=== PATIENT | male | born 1960 | race Caucasian/White ===

== ENCOUNTER 2016-12-01 05:48 | Emergency (ER) | payer MEDICAID ==
[~2016-12-01] VITALS: Ht 175.3 cm; Wt 81.6 kg
[2016-12-01 06:01] VITALS: BP 126/81
[2016-12-01] MEDS ORDERED: KETOROLAC TROMETHAMINE INJ 30 MG/ML VIAL ONE (06:17)
[2016-12-01] MEDS ORDERED: KETOROLAC TROMETHAMINE INJ 60 MG/2 ML VIAL IM ONE (06:30)
== END 2016-12-01 06:31 | disposition home or self-care (01) ==
LOC: ER 05:48
DX: G89.21 Chronic pain due to trauma (principal); M21.612 Bunion of left foot
CPT/HCPCS: A4606; J1885; Z7502; Z7610

== ENCOUNTER 2016-12-20 20:03 | Emergency (ER) | payer MEDICAID ==
[~2016-12-20] VITALS: Ht 172.7 cm; Wt 74.8 kg
[2016-12-20 20:26] VITALS: BP 138/92
== END 2016-12-21 02:25 | disposition home or self-care (01) ==
LOC: ER 20:03
DX: Z53.21 Procedure and treatment not carried out due to patient leaving prior to being seen by health care provider (principal)
CPT/HCPCS: A4606; Z7610

== ENCOUNTER 2019-10-21 03:10 | Inpatient (IN) | payer MEDICAID ==
[~2019-10-21] VITALS: Ht 170.2 cm; Wt 80.3 kg
[2019-10-21] MEDS ORDERED: MAG HYDROX/AL HYDROX/SIMETH 30 ML UDC PO PRN (04:30)
[2019-10-21] MEDS ORDERED: ZOLPIDEM TARTRATE 5 MG TABLET PO PRN (04:30)
[2019-10-21] MEDS ORDERED: HYDROCODONE/APAP 5/325MG 1 EACH TABLET PO PRN (04:30)
[2019-10-21] MEDS ORDERED: Z GUARD REMEDY 2 OZ OINT TP PRN (04:30)
[2019-10-21] MEDS ORDERED: ONDANSETRON HCL/PF 4 MG/2 ML VIAL IVP PRN (04:30)
[2019-10-21] MEDS ORDERED: MAGNESIUM HYDROXIDE 30 ML UDC PO PRN (04:30)
[2019-10-21] MEDS: CEFTRIAXONE 1 G in IV D5W 50 ML IV SCH (05:23)
--- NOTE | 2019-10-21 05:23 | NUR ---
MS RN NOTE PT ARRIVED VIA GURNEY ACCOMPANIED BY AMBULANCE STAFF. PT TRANSFERRED WITH STANDBY ASSIST FROM GURNEY TO BED. PT ARRIVED TO FLOOR IN STABLE CONDITION A/O X4, VERBALIZING HIS NEED TO REST. NO SIGNS OF SOB OR DISTRESS, NO COMPLAINTS OF PAIN OR N/V. IV IN R AC #20 NOTED. PT REFUSING SKIN ASSESSMENT, ADMISSION VITALS, AND ADMISSION QUESTIONS. BELONGINGS NOTED WERE BOOTS, JACKET, SHIRT AND PANTS. PT CONTINUES TO DECLINE ALL NECESSARY CARE. ALL CURRENT NEEDS ATTENDED TO. SAFETY PRECAUTIONS IN PLACE. WILL CONT. TO MONITOR.
[2019-10-21] MEDS ORDERED: VITAMIN B1 PO (05:52)
[2019-10-21] MEDS ORDERED: IBUP-1955 PO ×2 (05:52)
[2019-10-21] MEDS ORDERED: PERM60CR4 TP (05:52)
[2019-10-21] MEDS ORDERED: CEPH500C2 PO (05:52)
[2019-10-21] MEDS ORDERED: FOLI5VIA2 IJ (05:52)
--- NOTE | 2019-10-21 06:17 | NUR ---
MS RN NOTE PT REMAINS IN STABLE CONDITION A/O X4, RESTING IN BED. NO SIGNS OF SOB OR DISTRESS, NO COMPLAINTS OF PAIN OR N/V. IV IN R AC #20 NOTED.PT CONTINUES TO DECLINE ALL NECESSARY CARE RISKS AND BENEFITS MADE AWARE. ALL CURRENT NEEDS ATTENDED TO. SAFETY PRECAUTIONS IN PLACE. WILL CONT AND ENDORSE TO NEXT SHIFT FOR MILLA.
--- NOTE | 2019-10-21 07:45 | NUR ---
MS RN OPENING NOTE PATIENT IN BED RESTING COMFORTABLY. PATIENT IN NO ACUTE DISTRESS. NO SOB NOTED. PATIENT BREATHING IS EVEN AND UNLABORED. IV ACCESS PATENT AND INTACT. EXTREMITIES OFFLOADED ON PILLOWS. SAFETY PRECAUTIONS IN PLACE. PATIENT BED IS LOCKED AND IN LOWEST POSITION. CALL LIGHT WITHIN REACH. WILL CONTINUE TO MONITOR.
--- NOTE | 2019-10-21 08:15 | NUR ---
MS/RN Opening note Received patient resting in bed, A/O x4, showing no signs of acute distress or SOB. Patient states he in "pain all over his body" I offered the patient pain medication but he refused, he said "I dont take drugs, I only drink." Patient agreed to show me his left toe and immediately started screaming, "Put my sock back on! My feet are cold! I dont like having any part of my body exposed!" Left big toe and second toe are both swollen, yellow and moist with odor. Patient refused photos and culture swab. Offered Urinal and bedside commode to patient, and patient refused both. He got up and walked to the bathroom and asked to be left alone. Patient is on contact isolation to rule out head lice due to history of head lice and previously prescribed med of permethrin (acticin/elimite) from [facility]. Safety measures in place, patient is aware of how to call for assistance. Will continue to monitor.
[2019-10-21 12:03] LABS: BASOPHILS % (AUTO) 0.5 % (0.0-2.0); EOSINOPHILS % (AUTO) 5.3 % (0.0-6.0); HEMATOCRIT 35 % (39-51); HEMOGLOBIN 11.4 g/dL (13.5-17.5); LYMPHOCYTES # (AUTO) 0.7 /CMM (0.8-4.8); LYMPHOCYTES % (AUTO) 11.5 % (20.0-44.0); MEAN CORPUSCULAR HGB CONC 33 g/dl (31.0-36.0); MEAN CORPUSCULAR VOLUME 99 fL (80-96); MONOCYTES # (AUTO) 0.7 /CMM (0.1-1.30); MONOCYTES % (AUTO) 10.5 % (2.0-12.0); NEUTROPHILS # (AUTO) 4.6 /CMM (1.8-8.9); NEUTROPHILS % (AUTO) 72.2 % (43.0-81.0); PLATELET COUNT (AUTO) 178 /CMM (150-450); RED BLOOD CELL COUNT(AUTO) 3.53 MIL/uL (4.5-6.0); WHITE BLOOD COUNT (AUTO) 6.3 K/uL (4.3-11.0)
[2019-10-21 12:12] LABS: CREATININE 0.9 mg/dL (0.6-1.3); POTASSIUM 3.9 mmol/L (3.5-5.1)
[2019-10-21 12:18] LABS: ALBUMIN 3.4 g/dL (3.4-5.0); BILIRUBIN,TOTAL 0.5 mg/dL (0.2-1.0); TOTAL PROTEIN, SERUM 7.1 g/dL (6.4-8.2)
[2019-10-21 12:25] LABS: THYROID STIMULATING HORMONE 2.399 uIU/mL (0.358-3.74)
--- NOTE | 2019-10-21 13:31 | NUR ---
MS/RN note Patient agreed to MRSA swab of the nares and agreed to take photos of his face and bilateral feet. Patient refused assessment of his sacrum but he stated he has a history of hemorrhoids.
--- NOTE | 2019-10-21 13:32 | NUR ---
MS/RN note contacted central supply for isolation cart, they said that they ran out but will bring one up as soon as they can obtain one. Gown, masks and head covers placed outside of room
[2019-10-21 16:00] VITALS: BP 127/71
--- NOTE | 2019-10-21 19:45 | NUR ---
MS RN CLOSING NOTE PATIENT IN BED RESTING COMFORTABLY. PATIENT IN NO ACUTE DISTRESS. NO SOB NOTED. PATIENT BREATHING IS EVEN AND UNLABORED. PATIENT KEPT CLEAN, DRY, AND COMFORTABLE THROUGHOUT SHIFT. IV ACCESS PATENT AND INTACT. EXTREMITIES OFFLOADED ON PILLOWS. SAFETY PRECAUTIONS IN PLACE. PATIENT BED IS LOCKED AND IN LOWEST POSITION. CALL LIGHT WITHIN REACH. WILL ENDORSE CARE TO PM SHIFT FOR MILLA.
--- NOTE | 2019-10-21 19:46 | NUR ---
MS RN OPENING NOTE RECEIVED PATIENT IN BED. CURRENTLY ON CONTACT ISOLATION TO R/O LICE AND SCABIES. A/OX4. TOLERATING ROOM AIR. RESPIRATION ARE EVEN AND UNLABORED. NO S/S SOB NOTED. DENIES PAIN AT THIS TIME. IN NO APPARENT DISTRESS. IV ACCESS IN RAC#20 RUNNING NS@75ML/HR. BED IS LOW AND LOCKED, HOB ELEVATED IN SEMIFOWLERS, SIDE RIALS UP X3, BED ALARM ON. CALL LIGHT WITHIN REACH. WILL CONTINUE TO MONITOR.
[2019-10-21 20:00] VITALS: BP 114/71
[2019-10-22] MEDS ORDERED: VANCOMYCIN 1.25 GM in IV D5W 250 ML IV ONE (02:00)
[2019-10-22] MEDS ORDERED: VANCOMYCIN 1 GM VIAL ONE ×2 (02:56→02:57)
--- NOTE | 2019-10-22 03:00 | NUR ---
MS RN NOTE ADMINISTERED VANCO 1.25G. CHARGE NURSE OVER RIDE VANCO IN [facility] CELL BECAUSE I WAS NOT ABLE TO GET THE ANTIBIOTIC AT THIS TIME. TWO 1G VANCO BAGS WERE OVER RIDE, USED A 10 CC SYRINGE TO MIX IN ONE OF THE 1G VIALS AND REMOVED THE AMOUNT OF .25G AND MIXED WITH THE OTHER 1G VANCO BAG.
[2019-10-22] MEDS: CEFTRIAXONE 1 G in IV D5W 50 ML IV SCH (05:57)
[2019-10-22] MEDS: IV NS 0.9% 1,000 ML IV PRN (05:57)
[2019-10-22] MEDS ORDERED: FEE PK DOSING 1 MIN EA MC ONE (06:15)
--- NOTE | 2019-10-22 07:22 | NUR ---
MS RN CLOSING NOTE PATIENT IN BED. ON CONTACT ISOLATION TO R/O LICE AND SCABIES. A/OX4. TOLERATING ROOM AIR. RESPIRATION ARE EVEN AND UNLABORED. NO SOB NOTED. NO C/O PAIN. NO DISTRESS NOTED. IV ACCESS MAINTAINED IN RAC#20 RUNNING NS@75ML/HR. BED IS LOW AND LOCKED, HOB ELEVATED IN SEMIFOWLERS, SIDE RIALS UP X3, BED ALARM ON. CALL LIGHT WITHIN REACH. WILL ENDORSE TO NEXT SHIFT
--- NOTE | 2019-10-22 07:43 | NUR ---
MS/RN Opening note Patient is resting in bed, A/O x4 showing no signs of acute distress or SOB, saturating >95% on RA. IV line is clean and intact running NS @ 75ml/hr. Patient is complaining of headache at this time but refuses to take any pain medication. Light turned off in room and door closed to help patient relax. Bed is in lowest position, side rails x2 in upright position, call light is within reach and patient is aware of how to call for assistance when needed. Will continue with plan of care.
[2019-10-22 08:26] VITALS: BP 123/84
[2019-10-22] MEDS ORDERED: PERMETHRIN 59 ML BOTTLE TP ONE (09:00)
[2019-10-22 10:21] LABS: BASOPHILS % (AUTO) 0.6 % (0.0-2.0); EOSINOPHILS % (AUTO) 7.1 % (0.0-6.0); HEMATOCRIT 36 % (39-51); HEMOGLOBIN 12.2 g/dL (13.5-17.5); LYMPHOCYTES # (AUTO) 0.8 /CMM (0.8-4.8); LYMPHOCYTES % (AUTO) 14.3 % (20.0-44.0); MEAN CORPUSCULAR HGB CONC 34 g/dl (31.0-36.0); MEAN CORPUSCULAR VOLUME 97 fL (80-96); MONOCYTES # (AUTO) 0.8 /CMM (0.1-1.30); MONOCYTES % (AUTO) 15.1 % (2.0-12.0); NEUTROPHILS # (AUTO) 3.4 /CMM (1.8-8.9); NEUTROPHILS % (AUTO) 62.9 % (43.0-81.0); PLATELET COUNT (AUTO) 181 /CMM (150-450); RED BLOOD CELL COUNT(AUTO) 3.75 MIL/uL (4.5-6.0); WHITE BLOOD COUNT (AUTO) 5.4 K/uL (4.3-11.0)
[2019-10-22 10:34] LABS: CALCIUM, SERUM 8.7 mg/dL (8.5-10.1); CREATININE 0.9 mg/dL (0.6-1.3); MAGNESIUM 2.1 mg/dL (1.8-2.4); PHOSPHORUS 2.6 mg/dL (2.5-4.9); POTASSIUM 3.8 mmol/L (3.5-5.1)
--- NOTE | 2019-10-22 12:11 | NUR ---
MS/RN note sent a request for health information from [facility] for lab results. The Release of Information office is closed for the weekend. Will follow up.
[2019-10-22] MEDS: VANCOMYCIN 1.25 GM in IV D5W 250 ML IV SCH (15:58)
[2019-10-22 16:33] VITALS: BP 110/71
[2019-10-22] MEDS ORDERED: DOCUSATE SODIUM LIQ 100 MG/10 ML UDC ONE (16:37)
--- NOTE | 2019-10-22 18:38 | NUR ---
MS/RN Closing note Patient is resting in bed, A/O x4 showing no signs of acute distress or SOB, saturating >95% on RA. IV line is clean and intact running NS @ 75ml/hr. Patient is on contact isolation precautions. All patient needs met, all due meds given. Bed is in lowest position, side rails x2 in upright position, call light is within reach and patient is aware of how to call for assistance when needed. Will endorse to shift commander.
[2019-10-22 20:00] VITALS: BP 104/69
--- NOTE | 2019-10-22 20:01 | NUR ---
MS RN OPENING NOTE RECEIVED PATIENT IN BED. ON CONTACT ISOLATION TO R/O LICE AND SCABIES. A/OX4. TOLERATING ROOM AIR. RESPIRATION ARE EVEN AND UNLABORED. NO S/S SOB NOTED. DENIES PAIN AT THIS TIME. IN NO APPARENT DISTRESS. IV ACCESS IN RAC#20 RUNNING NS@75ML/HR. BED IS LOW AND LOCKED, HOB ELEVATED IN SEMIFOWLERS, SIDE RIALS UP X3, BED ALARM ON. CALL LIGHT WITHIN REACH. WILL CONTINUE TO MONITOR.
[2019-10-22 21:27] VITALS: BP 104/69
--- NOTE | 2019-10-23 00:17 | NUR ---
MS RN NOTE PATIENT REFUSED TO HAVE PHOTOS TAKEN OF HIS RIGHT FOOT AND LEFT TOE. ALLOWED PARTIAL PICTURE TAKING. PICTURES PLACES IN CHART
[2019-10-23] MEDS: VANCOMYCIN 1.25 GM in IV D5W 250 ML IV SCH ×2 (01:52→14:29)
[2019-10-23] MEDS: CEFTRIAXONE 1 G in IV D5W 50 ML IV SCH (05:13)
[2019-10-23] MEDS: IV NS 0.9% 1,000 ML IV PRN ×2 (05:13→23:50)
--- NOTE | 2019-10-23 05:29 | NUR ---
MS RN NOTE PATIENT ALLOWED PHOTOS TO BE TAKEN ON LEFT TOE AND RIGHT FOOT. PHOTOS PLACED IN CHART.
[2019-10-23 07:27] LABS: BASOPHILS % (AUTO) 0.8 % (0.0-2.0); EOSINOPHILS % (AUTO) 8.8 % (0.0-6.0); HEMATOCRIT 36 % (39-51); HEMOGLOBIN 12.2 g/dL (13.5-17.5); LYMPHOCYTES # (AUTO) 0.9 /CMM (0.8-4.8); LYMPHOCYTES % (AUTO) 16.9 % (20.0-44.0); MEAN CORPUSCULAR HGB CONC 34 g/dl (31.0-36.0); MEAN CORPUSCULAR VOLUME 98 fL (80-96); MONOCYTES # (AUTO) 0.8 /CMM (0.1-1.30); MONOCYTES % (AUTO) 15.8 % (2.0-12.0); NEUTROPHILS # (AUTO) 3.1 /CMM (1.8-8.9); NEUTROPHILS % (AUTO) 57.7 % (43.0-81.0); PLATELET COUNT (AUTO) 183 /CMM (150-450); WHITE BLOOD COUNT (AUTO) 5.3 K/uL (4.3-11.0)
[2019-10-23 07:39] LABS: ALBUMIN 3.2 g/dL (3.4-5.0); BILIRUBIN,DIRECT 0.1 mg/dL (0.0-0.2); BILIRUBIN,TOTAL 0.6 mg/dL (0.2-1.0)
[2019-10-23 07:41] LABS: CALCIUM, SERUM 8.4 mg/dL (8.5-10.1); MAGNESIUM 2.1 mg/dL (1.8-2.4); PHOSPHORUS 3.1 mg/dL (2.5-4.9); POTASSIUM 3.9 mmol/L (3.5-5.1)
--- NOTE | 2019-10-23 08:07 | NUR ---
MS RN OPENING NOTES RECEIVED PATIENT AWAKE, A/O X4. PATIENT ON ROOM AIR BREATHING EVEN AND UNLABORED WITH NO S/S OF ACUTE RESPIRATORY DISTRESS NOTED AT THIS TIME. PATIENT WITH MILD GENERALIZED PAIN AT THIS TIME. RAC GAUGE # 20 PRESENT AND INTACT, FLUSHING WELL WITH NS RUNNING AT 75 ML/HR. SAFETY PRECAUTIONS IN PLACE: BED IN LOW POSITION AND LOCKED, RAILS UP X 2, CALL LIGHT WITHIN REACH. WILL CONTINUE TO MONITOR PATIENT.
[2019-10-23] MEDS: ACETAMINOPHEN 325 MG TABLET PO PRN (09:46)
--- NOTE | 2019-10-23 11:03 | NUR ---
WOUND CARE CONSULT: PT PRESENTS AMBULATORY AND CONTINENT WITH DRY LESIONS TO BILATERAL FEET AND PAINFUL LEFT 2ND TOE, PRESENT ON ADMISSION. RECOMMEND DPM CONSULT. DR OLGUIN NOTIFIED OF CONSULT REQUEST. WILL SEE PRN. Addendum: 10/23/19 at 1105 by HUMAIRA LAKE WNDNU PT ALSO NOTED TO HAVE EYEBROW CLOSED LACERATION WITH SUTURES AND DRY ABRASION TO CHEEK, PRESENT ON ADMISSION.
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
[2019-10-23 16:00] VITALS: BP 119/86
--- NOTE | 2019-10-23 19:09 | NUR ---
MS RN CLOSING NOTES PATIENT AT THIS MOMENT IN BED, AWAKE, A/O X4 WATCHING TV. PATIENT ON ROOM AIR BREATHING EVENLY WITH NO S/S OF DISTRESS OR SOB AT THIS TIME. PATIENT DENIES PAIN AT THIS MOMENT. RAC GAUGE # 20 PRESENT, INTACT AND PATENT INFUSING NS AT 75 MLS /HR. MEPILEX APPLIED ON LEFT 2ND TOE PER ORDER. SAFETY PRECAUTIONS IN PLACE: BED IN LOW POSITION AND LOCKED, RAILS UP X 2, CALL LIGHT WITHIN REACH. WILL ENDORSE TO THE GRAIN SHIPPER NURSE.
[2019-10-23 20:00] VITALS: BP 111/71
--- NOTE | 2019-10-23 20:00 | NUR ---
MS/RN OPENING NOTES RECEIVED FROM ID TO F/U REGARDING BLOOD CULTURE HISTORY FROM [facility] IN AM, PATIENT IN CONTACT ISOLATION FOR LICE, PATIENT ALERT, ORIENTED X3, ABLE TO COOPERATE AND VERBALIZE NEEDS, CAN AMBULATE WITH SUPERVISION AT THE BATHROOM, IV SITE ON RIGHT AC GAUGE 20. WITH LEFT TOE CELLULITIS, WITH ORDER FOR IV NS AT 75ML/HR, PATIENT ABLE TO TOLERATE FLUIDS.WITH ANTIBIOTIC TO BE ADMINISTERED VANCO,BED LOCCKED, CALL LIGHTS WITHIN REACH. WILL MONITOR.
--- NOTE | 2019-10-24 00:06 | NUR ---
ms/rn notes PATIENT WAS INFORMED ABOUT IV FLUIDS AND MEDICATION TO ADMINISTER AT 2, WAS AWAKEN FROM SLEEP AND UPSET THAT HE WAS AWAKEN, VERBALIZED REFUSAL TO HAVE IV FLUIDS AND REINSETION OF IV , NOT COOPERATIVE AND NON COMPLIANT FOR MEDICAL TREATMENT AT THIS TIME. MD PEREZ WAS INFORMED.
[2019-10-24] MEDS: VANCOMYCIN 1 GM in IV D5W 250 ML IV SCH ×2 (02:00→14:12)
--- NOTE | 2019-10-24 02:00 | NUR ---
REFUSAL OF IV VANCO, VERBAL AGGRESSIVE AND MD AWARE
--- NOTE | 2019-10-24 02:30 | NUR ---
MS/RN NOTES PATIENT REFUSE TO HAVE IV INSERTION, REFUSE IV VANCO TO BE ADMINISTERED, BEHAVIOR AGGRESSIVE, VERBAL ABUSIVE, UNCONTROLLED. MD AWARE FOR NON COMPLIANCE.UNABLE TO FOLLOW INSTRUCTION.
[2019-10-24] MEDS: CEFTRIAXONE 1 G in IV D5W 50 ML IV SCH (05:11)
--- NOTE | 2019-10-24 05:12 | NUR ---
MS/RN NOTES PATIENT REFUSE CARE AND DO NOT WANT TO HAVE IV REINSERTED, PATIENT IV SITE REPORTED PAINFUL, PATIENT UPSET WHEN BEING AWAKEN AND DEMANDED NOT TO WAKE HIM UP, VERBALLY AGGRESSIVE.MD AWARE PATIENT IS NON COMPLIANT.
--- NOTE | 2019-10-24 06:31 | NUR ---
329-1 ,MS/RN NOTES' PATIENT SLEPT AND REFUSE VANCO ADMINISTRATION, BEHAVIOR WITH OUTBURST, WILL MONITOR AND ENDORSE TO AM RN FOR MILLA.
[2019-10-24] MEDS: ACETAMINOPHEN 325 MG TABLET PO PRN (06:37)
--- NOTE | 2019-10-24 06:50 | NUR ---
MS/RN NOTES PATIENT ABLE TO VERBALIZE NEEDS AND MOOD IS IMPROVED, ASKED FOR TYLENOL 650 MG PO FOR MIMIMAL PAIN, DISCUSSED THE MISSED DOSES OF VANCO AND ROCEPHIN. REPORTED THAT HE GOT UPSET LAST NIGHT BUT APOLOGIZED AND NURSE APOLOGIZED WELL,PATIENT DOSE MISSED TO HAVE DOSE TIME CHANGE PATIENT REFUSED EARLIER AND AT 0200 , MD WAS INFORMED ABOUT REFUSAL AND NOW PATIENT WANTS TO BE COMPLIANT WITH CARE.
--- NOTE | 2019-10-24 07:10 | NUR ---
RN OPENING NOTEs Patient received on room air, no sob noted, a/o x4. Patient denies pain at this time and has no current needs. Bed at the lowest setting, call light within reach, side rails up x2.
[2019-10-24 08:00] VITALS: BP 103/75
[2019-10-24 08:24] LABS: CALCIUM, SERUM 8.5 mg/dL (8.5-10.1); POTASSIUM 3.8 mmol/L (3.5-5.1)
[2019-10-24] MEDS ORDERED: CEFTRIAXONE 1 G in IV D5W 50 ML IV SCH (15:00)
[2019-10-24 16:00] VITALS: BP 103/60
--- NOTE | 2019-10-24 18:22 | NUR ---
RN CLOSING NOTES Patient remains on room air, no sob noted, patient remains a/o x4. L fa 22 with 75 ml per hour. Patient took all medications today with no issues. Bed at the lowest setting, call light within reach, side rails up x2. Will give report to NOC RN for MILLA bedside.
--- NOTE | 2019-10-24 19:58 | NUR ---
MS/RN RECEIVED PATIENT AWAKE, ALERT, ORIENTED, COMFORTABLE, NO C/O PAIN, NO DISTRESS NOTED, CALL LIGHT IN REACH. WILL MONITOR.
[2019-10-24 20:47] VITALS: BP 140/80
--- NOTE | 2019-10-24 22:00 | NUR ---
MS/RN REFUSED IV FLUIDS.
--- NOTE | 2019-10-25 02:52 | NUR ---
MS/RN PATIENT IS SLEEPING AT THIS TIME, APPEAR COMFORTABLE, NO SIGNS OF DISTRESS NOTED, CALL LIGHT IN REACH. WILL CONTINUE TO MONITOR.
--- NOTE | 2019-10-25 06:02 | NUR ---
MS/RN PATIENT IS AWAKE AT THIS TIME, DOING MORNING CARE IN FRONT OF THE MIRROR, NO C/O PAIN, NO DISTRESS NOTED, ALL NEEDS ATTENDED AT THIS TIME, WILL CONTINUE TO MONITOR.
--- NOTE | 2019-10-25 07:59 | NUR ---
RN OPENING NOTES Patient received on room air, no sob noted, patient denies pain at this time. Patient remains a/o x4 and is comfortably sitting on his bed. Bed at the lowest setting, call light within reach, side rails up x2.
[2019-10-25 08:20] LABS: CALCIUM, SERUM 8.7 mg/dL (8.5-10.1)
--- NOTE | 2019-10-25 12:25 | NUR ---
rn notes Abdulaziz called for a follow up about patients requested paper work. Abdulaziz stated that they received it and is currently being worked on.
--- NOTE | 2019-10-25 13:40 | NUR ---
rn gabriel notes patient left AMA. AMA paperwork signed, no photos taken.
== END 2019-10-25 14:00 | disposition left against medical advice (07) | DRG 383 ==
LOC: MED 05:15
PROVIDERS: ADMIT Student in an Organized Health Care Education/Training Program; ATTEND Internal Medicine
DX: L03.032 Cellulitis of left toe (principal); E87.2 Acidosis; K70.10 Alcoholic hepatitis without ascites; E87.6 Hypokalemia; D63.8 Anemia in other chronic diseases classified elsewhere; S01.81XA Laceration without foreign body of other part of head, initial encounter; F10.10 Alcohol abuse, uncomplicated; Z59.0 Homelessness; Z91.19 Patient's noncompliance with other medical treatment and regimen; Z86.19 Personal history of other infectious and parasitic diseases; M20.42 Other hammer toe(s) (acquired), left foot; M20.41 Other hammer toe(s) (acquired), right foot; R74.0 Nonspecific elevation of levels of transaminase and lactic acid dehydrogenase [LDH]; M21.612 Bunion of left foot; M21.611 Bunion of right foot; X58.XXXA Exposure to other specified factors, initial encounter; Y93.9 Activity, unspecified; Y92.89 Other specified places as the place of occurrence of the external cause
CPT/HCPCS: 36415; 80048-TC; 80053-TC; 80061-TC; 80076-TC; 80202-TC; 83605-TC; 83735-TC; 84100-TC; 84443-TC; 85025-TC; 87040-TC; 87081-TC; G0378; J0696; J3370; J7030; J7060

== ENCOUNTER 2019-10-26 19:53 | Emergency (ER) | payer MEDICAID ==
[~2019-10-26 19:53] MED LIST: CEPH500C2 PO; FOLI5VIA2 IJ; IBUP-1955 PO; PERM60CR4 TP; VITAMIN B1 PO
--- NOTE | 2019-10-26 20:28 | NUR ---
called for triage, no answer.
--- NOTE | 2019-10-26 22:02 | NUR ---
CALLED FOR TRIAGE. NO ANSWER
--- NOTE | 2019-10-26 22:10 | NUR ---
CALLED TO TRIAGE . PT SCREAMED "LEAVE ME ALONE"
--- NOTE | 2019-10-26 23:10 | NUR ---
CALLED FOR TRIAGE, NO ANSWER
== END 2019-10-26 23:36 | disposition home or self-care (01) ==
LOC: ER 19:54
DX: Z53.21 Procedure and treatment not carried out due to patient leaving prior to being seen by health care provider (principal)

== ENCOUNTER 2019-12-24 16:09 | Emergency (ER) | payer MEDICAID ==
[~2019-12-24] VITALS: Ht 165.1 cm; Wt 77.1 kg
[2019-12-24 16:55] LABS: BASOPHILS # (AUTO) 0.1 /CMM (0.0-0.2); BASOPHILS % (AUTO) 0.9 % (0.0-2.0); EOSINOPHILS % (AUTO) 9.8 % (0.0-6.0); HEMATOCRIT 38 % (39-51); HEMOGLOBIN 12.7 g/dL (13.5-17.5); LYMPHOCYTES # (AUTO) 1.9 /CMM (0.8-4.8); LYMPHOCYTES % (AUTO) 29.7 % (20.0-44.0); MEAN CORPUSCULAR HGB CONC 33 g/dl (31.0-36.0); MEAN CORPUSCULAR VOLUME 95 fL (80-96); MONOCYTES # (AUTO) 0.6 /CMM (0.1-1.30); MONOCYTES % (AUTO) 9.2 % (2.0-12.0); NEUTROPHILS # (AUTO) 3.2 /CMM (1.8-8.9); NEUTROPHILS % (AUTO) 50.4 % (43.0-81.0); PLATELET COUNT (AUTO) 215 /CMM (150-450); RED BLOOD CELL COUNT(AUTO) 4.04 MIL/uL (4.5-6.0); WHITE BLOOD COUNT (AUTO) 6.4 K/uL (4.3-11.0)
[2019-12-24] MEDS ORDERED: IV NS 0.9% 1,000 ML BAG IV ONE (17:00)
[2019-12-24 17:10] LABS: CALCIUM, SERUM 8.4 mg/dL (8.5-10.1); CARBON DIOXIDE 23 mmol/L (21-32); CHLORIDE 102 mmol/L (98-107); CREATININE 1.2 mg/dL (0.6-1.3); GLUCOSE 114 mg/dL (74-106); POTASSIUM 3.4 mmol/L (3.5-5.1); SODIUM SERUM 139 mmol/L (136-145); UREA NITROGEN, BLOOD 18 mg/dL (7-18)
[2019-12-24 17:22] LABS: ALANINE AMINOTRANSFERASE 41 U/L (12-78); ALBUMIN 3.8 g/dL (3.4-5.0); ALCOHOL, BLOOD 432 mg/dL (0-0); ALKALINE PHOSPHATASE 78 U/L (46-116); ASPARTATE AMINOTRANSFERASE 91 U/L (15-37); BILIRUBIN,DIRECT 0.2 mg/dL (0.0-0.2); BILIRUBIN,TOTAL 0.4 mg/dL (0.2-1.0); TOTAL PROTEIN, SERUM 7.6 g/dL (6.4-8.2)
--- NOTE | 2019-12-24 17:29 | NUR ---
Patient alert to name confused to place and time pos. ETOH patient chloths all wett change to hospital gown keep patient clean and dry
[2019-12-24 17:30] LABS: ACETAMINOPHEN < 2 ug/ml (10-30); SALICYLATE < 2.8 mg/dL (2.8-20.0)
[2019-12-24 18:50] LABS: APPEARANCE,URINE Clear (CLEAR); BILIRUBIN,URINE Negative (NEGATIVE); BLOOD, URINE Negative Ery/uL (NEGATIVE); COLOR,URINE Yellow (YELLOW); KETONES,URINE Negative (NEGATIVE); LEUKOCYTE ESTERASE ,URINE Negative (NEGATIVE); NITRITE, URINE Negative (NEGATIVE); PH,URINE 5.5 (5.0-8.0); PROTEIN,URINE Negative (NEGATIVE); UGLUCOSE Negative (NEGATIVE); UROBILINOGEN,URINE 0.2 EU/dL (0.2)
--- NOTE | 2019-12-24 19:10 | NUR ---
REPORT RECEIVED FROM [employer], FOR MILLA
--- NOTE | 2019-12-24 20:58 | NUR ---
PT ON CONSTANT OBSERVATION W/ SITTER AT BEDSIDE. SAFETY PRECAUTIONS IMPLEMENTED. PT RESTING COMFORTBALY. VSS AT THIS TIME. WILL CONTINUE TO MONITOR
--- NOTE | 2019-12-24 22:34 | NUR ---
PT ON CONSTANT OBSERVATION W/ SITTER AT BEDSIDE. SAFETY PRECAUTIONS IMPLEMENTED. PT RESTING COMFORTBALY. VSS AT THIS TIME. WILL CONTINUE TO MONITOR
--- NOTE | 2019-12-25 01:19 | NUR ---
PT ON CONSTANT OBSERVATION W/ SITTER AT BEDSIDE. SAFETY PRECAUTIONS IMPLEMENTED. PT RESTING COMFORTBALY. VSS AT THIS TIME. WILL CONTINUE TO MONITOR
--- NOTE | 2019-12-25 02:41 | NUR ---
PT ON CONSTANT OBSERVATION W/ SITTER AT BEDSIDE. SAFETY PRECAUTIONS IMPLEMENTED. PT RESTING COMFORTBALY. VSS AT THIS TIME. WILL CONTINUE TO MONITOR
--- NOTE | 2019-12-25 04:47 | NUR ---
PT ON CONSTANT OBSERVATION W/ SITTER AT BEDSIDE. SAFETY PRECAUTIONS IMPLEMENTED. PT RESTING COMFORTBALY. VSS AT THIS TIME. WILL CONTINUE TO MONITOR
--- NOTE | 2019-12-25 06:09 | NUR ---
PT ON CONSTANT OBSERVATION W/ SITTER AT BEDSIDE. SAFETY PRECAUTIONS IMPLEMENTED. PT RESTING COMFORTBALY. VSS AT THIS TIME. WILL CONTINUE TO MONITOR
[2019-12-25] MEDS ORDERED: CHLORDIAZEPOXIDE HCL 25 MG CAPSULE ONE (06:24)
[2019-12-25] MEDS ORDERED: CHLORDIAZEPOXIDE HCL 25 MG CAPSULE PO ONE (06:30)
--- NOTE | 2019-12-25 06:42 | NUR ---
ambulatory with a steady gaitIV removed. Catheter intact and site benign. Pressure and 4x4 applied to site. No bleeding noted.Patient given written and verbal discharge instructions. Patient verbalizes understanding of instructions. Patient is ambulatory with steady gait. Refuses offer of snf placement. Patient given list of available shelters in surrounding area.
[2019-12-25 06:43] VITALS: BP 112/68
== END 2019-12-25 06:43 | disposition home or self-care (01) ==
LOC: ER 16:12
DX: F10.129 Alcohol abuse with intoxication, unspecified (principal); M79.672 Pain in left foot; R40.4 Transient alteration of awareness; I95.9 Hypotension, unspecified; Z98.890 Other specified postprocedural states; Z79.899 Other long term (current) drug therapy; Y90.8 Blood alcohol level of 240 mg/100 ml or more
CPT/HCPCS: 36415; 70450; 73630; 80048; 80076; 80305; 80307; 80329; 81001; 82962; 85025; 85730; 99285; G0480; J7030; 81000-TC

== ENCOUNTER 2020-03-30 20:13 | Emergency (ER) | payer MEDICAID ==
[~2020-03-30] VITALS: Ht 165.1 cm; Wt 77.1 kg
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
--- NOTE | 2020-03-30 22:33 | NUR ---
PT RESTING COMFORTABLY IN BED. NAD NOTED. VSS. WILL CONTINUE TO MONITOR.
--- NOTE | 2020-03-31 01:13 | NUR ---
PATIENT IS AWAKE, PATIENT ASKS, "CAN I HAVE SOME JUICE?". PATIENT IS GIVEN JUICE. PATIENT IS WATCHING TELEVISION. RESTING IN BED. BREATHING EVENLY AND UNLABORED ON ROOM AIR. CONNECTED TO MONITOR WITH SITTER AT THE BEDSIDE.
--- NOTE | 2020-03-31 05:16 | NUR ---
Patient given written and verbal discharge instructions. Patient verbalizes understanding of instructions. Patient is ambulatory with steady gait. Refuses offer of [facility] placement. Patient given list of available shelters in surrounding area. ambulatory with a steady gait. Food provided
[2020-03-31 05:30] VITALS: BP 137/84
== END 2020-03-31 05:34 | disposition home or self-care (01) ==
LOC: ER 20:15
DX: F10.129 Alcohol abuse with intoxication, unspecified (principal); R41.82 Altered mental status, unspecified; G89.29 Other chronic pain; I95.9 Hypotension, unspecified; Y90.9 Presence of alcohol in blood, level not specified; Z86.19 Personal history of other infectious and parasitic diseases; Z98.890 Other specified postprocedural states; Z79.899 Other long term (current) drug therapy

== ENCOUNTER 2020-04-02 19:17 | Emergency (ER) | payer MEDICAID ==
[~2020-04-02] VITALS: Ht 175.3 cm; Wt 81.6 kg
[2020-04-02] MEDS ORDERED: ONDANSETRON HCL/PF 4 MG/2 ML VIAL ONE (19:56)
[2020-04-02] MEDS ORDERED: MORPHINE SULFATE INJ 4 MG/ML DISP.SYRIN ONE (19:57)
[2020-04-02] MEDS ORDERED: ONDANSETRON HCL/PF 4 MG/2 ML VIAL IVP ONE (20:00)
[2020-04-02] MEDS ORDERED: IV NS 0.9% 1,000 ML BAG IV ONE (20:00)
[2020-04-02] MEDS ORDERED: MORPHINE SULFATE INJ 2 MG/ML DISP.SYRIN IV ONE (20:00)
[2020-04-02 20:09] LABS: BASOPHILS # (AUTO) 0.1 /CMM (0.0-0.2); BASOPHILS % (AUTO) 1.3 % (0.0-2.0); EOSINOPHILS % (AUTO) 0.5 % (0.0-6.0); HEMATOCRIT 37 % (39-51); HEMOGLOBIN 12.1 g/dL (13.5-17.5); LYMPHOCYTES # (AUTO) 0.7 /CMM (0.8-4.8); LYMPHOCYTES % (AUTO) 12.4 % (20.0-44.0); MEAN CORPUSCULAR HGB CONC 32 g/dl (31.0-36.0); MEAN CORPUSCULAR VOLUME 98 fL (80-96); MONOCYTES # (AUTO) 0.7 /CMM (0.1-1.30); MONOCYTES % (AUTO) 11.9 % (2.0-12.0); NEUTROPHILS # (AUTO) 4.4 /CMM (1.8-8.9); NEUTROPHILS % (AUTO) 73.9 % (43.0-81.0); PLATELET COUNT (AUTO) 212 /CMM (150-450); RED BLOOD CELL COUNT(AUTO) 3.82 MIL/uL (4.5-6.0); WHITE BLOOD COUNT (AUTO) 5.9 K/uL (4.3-11.0)
--- NOTE | 2020-04-02 20:12 | NUR ---
BIBRA 839 FOR C/O ABD PAIN AND N/N X 1 DAY. PT AAOX4, VSS, RR EVEN & UNLABORED. DENIES CP, SOB, DIZZINESS, WEAKNESS, DIARRHEA AT THIS TIME. PT SEEN & EVAL'D BY CARMEN DIOR. MEDICATED ORDERED, PT DANI WELL. WILL CONT TO MONITOR.
[2020-04-02 20:19] LABS: CALCIUM, SERUM 9.2 mg/dL (8.5-10.1); CREATININE 1.1 mg/dL (0.6-1.3); POTASSIUM 4.2 mmol/L (3.5-5.1)
[2020-04-02 20:26] LABS: ALBUMIN 4.2 g/dL (3.4-5.0); BILIRUBIN,DIRECT 0.3 mg/dL (0.0-0.2); BILIRUBIN,TOTAL 1.6 mg/dL (0.2-1.0); TOTAL PROTEIN, SERUM 8.1 g/dL (6.4-8.2)
[2020-04-02] MEDS ORDERED: LORAZEPAM INJ 2 MG/ML VIAL IV ONE (21:00)
[2020-04-02] MEDS ORDERED: LORAZEPAM INJ 2 MG/ML VIAL ONE (21:01)
[2020-04-02 22:00] LABS: APPEARANCE,URINE Clear (CLEAR); BILIRUBIN,URINE MODERATE (NEGATIVE); BLOOD, URINE Trace-intact Ery/uL (NEGATIVE); COLOR,URINE Amber (YELLOW); KETONES,URINE 40 (NEGATIVE); LEUKOCYTE ESTERASE ,URINE Negative (NEGATIVE); NITRITE, URINE Negative (NEGATIVE); PH,URINE 6.5 (5.0-8.0); PROTEIN,URINE 100 mg/dl (NEGATIVE); UGLUCOSE Negative (NEGATIVE)
[2020-04-02 22:22] LABS: BACTERIA,URINE Rare /HPF (None Seen); SQUAMOUS EPITHELIAL CELL,UR Rare /HPF (None Seen); WBC,URINE 0-2 /HPF (0-3)
--- NOTE | 2020-04-02 22:32 | NUR ---
Patient discharged to home in stable condition. Written and verbal after care instructions given. Patient verbalizes understanding of instruction. IV removed. Catheter intact and site benign. Pressure and 4x4 applied to site. No bleeding noted.
[2020-04-02 22:33] VITALS: BP 140/85
== END 2020-04-02 22:34 | disposition home or self-care (01) ==
LOC: ER 19:19
DX: R10.84 Generalized abdominal pain (principal); D64.9 Anemia, unspecified; K76.0 Fatty (change of) liver, not elsewhere classified; R11.2 Nausea with vomiting, unspecified; Z98.890 Other specified postprocedural states; Z79.899 Other long term (current) drug therapy
CPT/HCPCS: 36415; 74176; 76705; 80048; 80076; 80305; 80307; 81001; 83690; 85025; 96361; 96374; 96375; 99285; J2060; J2270; J2405; J7030; 81000-TC; G0480

== ENCOUNTER 2020-04-07 18:49 | Inpatient (IN) | payer MEDICAID ==
[~2020-04-07] VITALS: Ht 175.3 cm; Wt 82.1 kg
--- NOTE | 2020-04-07 19:10 | NUR ---
ASSUMED CARE FOR THIS PT.
--- NOTE | 2020-04-07 19:20 | NUR ---
PT BIBA C/O MIDTSERNAL PRESSURE-LIKE CHEST PAIN X 2 DAYS. 06/20. PT ALSO COMPLAINS OF LEFT FOOT PAIN. PT AAOX4, RESPIRATIONS EVEN AND UNLABORED ON RA W/ NAD NOTED. PT APPEARS TO BE INTOXICATED W/ ALCOHOL. PT CONNECTED TO THE LINKER UP AND POX
[2020-04-07 19:22] LABS: BASOPHILS # (AUTO) 0.1 /CMM (0.0-0.2); BASOPHILS % (AUTO) 2.1 % (0.0-2.0); EOSINOPHILS % (AUTO) 5.2 % (0.0-6.0); HEMATOCRIT 33 % (39-51); HEMOGLOBIN 10.6 g/dL (13.5-17.5); LYMPHOCYTES # (AUTO) 1.8 /CMM (0.8-4.8); LYMPHOCYTES % (AUTO) 37.9 % (20.0-44.0); MEAN CORPUSCULAR HGB CONC 32 g/dl (31.0-36.0); MEAN CORPUSCULAR VOLUME 100 fL (80-96); MONOCYTES # (AUTO) 0.6 /CMM (0.1-1.30); MONOCYTES % (AUTO) 13.2 % (2.0-12.0); NEUTROPHILS % (AUTO) 41.6 % (43.0-81.0); PLATELET COUNT (AUTO) 180 /CMM (150-450); WHITE BLOOD COUNT (AUTO) 4.7 K/uL (4.3-11.0)
[2020-04-07] MEDS ORDERED: IV NS 0.9% 2,000 ML IV ONE (19:30)
[2020-04-07] MEDS ORDERED: ONDANSETRON HCL/PF - ER 4 MG/2 ML VIAL IV ONE (19:30)
[2020-04-07] MEDS ORDERED: ONDANSETRON HCL/PF 4 MG/2 ML VIAL ONE (19:33)
[2020-04-07 19:40] LABS: CALCIUM, SERUM 7.8 mg/dL (8.5-10.1); CREATININE 1.1 mg/dL (0.6-1.3); POTASSIUM 3.8 mmol/L (3.5-5.1)
[2020-04-07 19:45] LABS: ALBUMIN 3.5 g/dL (3.4-5.0); BILIRUBIN,TOTAL 0.2 mg/dL (0.2-1.0); TOTAL PROTEIN, SERUM 6.9 g/dL (6.4-8.2)
[2020-04-07] MEDS ORDERED: ASPIRIN 325 MG TABLET PO ONE (20:30)
[2020-04-07] MEDS ORDERED: ASPIRIN 325 MG TABLET ONE (20:34)
--- NOTE | 2020-04-07 20:45 | NUR ---
REPORT GIVEN TO KATHLEEN SINGH
[2020-04-07 20:55] VITALS: BP 95/66
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
--- NOTE | 2020-04-07 21:09 | NUR ---
PT TRANSFERRED TO [facility] IN STABLE CONDITION
--- NOTE | 2020-04-07 21:18 | NUR ---
ADMISSION ASSESSMENT PERFORMED; PATIENT PARTIALLY REFUSING ASSESSMENT. GOT PENITENTIARY THROUGH ADMISSIONA ASSESSMENT; PATIENT BECAME DEFENSIVE; "WHY ARE YOU ASKIN ME ALL THESES QUESTIONS. 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 I AM HEALTHY. I WORK OUT MORE THEN YOU. GET AWAY FORM ME. STOP ASKING ME STUPID QUESTIONS."
[2020-04-07 21:59] VITALS: BP 95/66
[2020-04-07] MEDS ORDERED: IV D5/0.45 NACL 1,000 ML IV PRN (22:34)
[2020-04-07] MEDS ORDERED: NITROGLYCERIN 0.4 MG/TAB BOTTLE SL PRN (23:00)
[2020-04-07] MEDS ORDERED: MORPHINE SULFATE INJ 2 MG/ML DISP.SYRIN IV PRN (23:00)
[2020-04-07] MEDS ORDERED: PANTOPRAZOLE 40 MG VIAL IV SCH (23:00)
[2020-04-07] MEDS ORDERED: ONDANSETRON HCL/PF 4 MG/2 ML VIAL IVP PRN (23:00)
--- NOTE | 2020-04-07 23:00 | NUR ---
REFUSED TO WEAR SCD ON LEGS. STATES, "I DON'T NEED THAT JUST LEAVE ME ALONE. IM TRYING TO SLEEP."
--- NOTE | 2020-04-07 23:16 | NUR ---
REFUSED SCHEDULED TROPONIN TEST; LAB TO RESCHEDULE FOR EARLIER THIS AM
[2020-04-08] VITALS: BP 98/54
[2020-04-08 04:00] VITALS: BP 95/63
--- NOTE | 2020-04-08 06:29 | NUR ---
RN PM CLOSING NOTES PT SEEN IN BED IN NO APPARENT DISTRESS. AWAKENS TO VOICE. ALLOWED LAB TO DRAW LABS THIS AM. BED DOWN ACTIVE. DENIES PAIN. SRX3 BED ALARM ACTIVE. MONITOR SHOWING NSR AT 60.
--- NOTE | 2020-04-08 07:05 | NUR ---
PATIENT FOUND IN ROOM GETTING DRESSED AND STATES. "LEAVE ME ALONE. IM GOING TO LEAVE. I AM LEAVING." PATIENT INFORMED THAT LEAVING AT THIS TIME IS NOT IN HIS BEST INTEREST AND COULD RESULT IN HIS CONDITION BECOMING WORSE OR POSSIBLY DYING. PT STATES, "WELL EVERYONES GOINT TO . I DON'T CARE IM LEAVING." IV REMOVED FROM RIGHT AC. BANDAGE APPLIED CATHETER INTACT. PATIENT REFUSED TO SIGN AMA FORM AND WITNESSED BY MYSELF AND ANOTHER RN SHA WANG. PATIENT ALLOWED TO LEAVE AND AMBULATED AND ESCORTED OUT THE BUILDING WITH ANTONIA BUENROSTRO AT 0700. DR. KEVIN WHITE NOTIFIED WITH A MESSAGE.
[2020-04-08 07:07] LABS: BASOPHILS # (AUTO) 0.1 /CMM (0.0-0.2); EOSINOPHILS % (AUTO) 5.7 % (0.0-6.0); HEMATOCRIT 31 % (39-51); HEMOGLOBIN 9.9 g/dL (13.5-17.5); LYMPHOCYTES # (AUTO) 1.4 /CMM (0.8-4.8); LYMPHOCYTES % (AUTO) 38.8 % (20.0-44.0); MEAN CORPUSCULAR HGB CONC 32 g/dl (31.0-36.0); MEAN CORPUSCULAR VOLUME 100 fL (80-96); MONOCYTES # (AUTO) 0.4 /CMM (0.1-1.30); MONOCYTES % (AUTO) 11.2 % (2.0-12.0); NEUTROPHILS # (AUTO) 1.6 /CMM (1.8-8.9); NEUTROPHILS % (AUTO) 42.3 % (43.0-81.0); PLATELET COUNT (AUTO) 162 /CMM (150-450); WHITE BLOOD COUNT (AUTO) 3.7 K/uL (4.3-11.0)
[2020-04-08 07:38] LABS: CALCIUM, SERUM 7.3 mg/dL (8.5-10.1); MAGNESIUM 1.9 mg/dL (1.8-2.4); PHOSPHORUS 4.1 mg/dL (2.5-4.9); POTASSIUM 3.4 mmol/L (3.5-5.1)
[2020-04-08 07:43] LABS: THYROID STIMULATING HORMONE 1.667 uIU/mL (0.358-3.74)
== END 2020-04-08 07:00 | disposition left against medical advice (07) | DRG 242 ==
LOC: ER 18:50 → TELE 20:21
PROVIDERS: ATTEND Nurse Practitioner Acute Care
DX: K22.6 Gastro-esophageal laceration-hemorrhage syndrome (principal); I21.4 Non-ST elevation (NSTEMI) myocardial infarction; E87.0 Hyperosmolality and hypernatremia; F10.10 Alcohol abuse, uncomplicated; Y90.9 Presence of alcohol in blood, level not specified
CPT/HCPCS: 36415; 71045-TC; 80048-TC; 80053-TC; 80061-TC; 82962-TC; 83690-TC; 83735-TC; 83880; 84100-TC; 84443-TC; 84484-TC; 85025-TC; 87081-TC; C9113; G0378; J2270; J2405; J3490; J7030

== ENCOUNTER 2020-04-17 18:16 | Emergency (ER) | payer MEDICAID ==
[~2020-04-17] VITALS: Ht 175.3 cm; Wt 79.4 kg
[2020-04-17 18:22] VITALS: BP 115/83
[2020-04-17] MEDS ORDERED: CEPHALEXIN MONOHYDRATE 500 MG CAPSULE PO ONE ×2 (19:00→19:13)
[2020-04-17] MEDS ORDERED: HYDROCODONE/APAP 5/325MG 1 EACH TABLET PO ONE (19:00)
[2020-04-17] MEDS ORDERED: HYDROCODONE/APAP 5/325MG 1 EACH TABLET ONE (19:12)
--- NOTE | 2020-04-17 19:19 | NUR ---
PT REFUSED TO SIGN HOMELESS WAIVER, PT REFUSED TO SIGN ACI BUT TOOK HIS PRESCRIPTIONS. PT IS AGITATED, YELLING AT STAFF STATING "YOU GUYS DID NOT DO ANYTHING FOR ME." PT LEFT ED W/ STEADY GAIT.
== END 2020-04-17 19:22 | disposition home or self-care (01) ==
LOC: ER 18:16
DX: S00.511A Abrasion of lip, initial encounter (principal); G89.21 Chronic pain due to trauma; K13.0 Diseases of lips; R60.0 Localized edema; K08.9 Disorder of teeth and supporting structures, unspecified; I95.9 Hypotension, unspecified; Z98.890 Other specified postprocedural states; Z60.2 Problems related to living alone; Z79.899 Other long term (current) drug therapy; X58.XXXA Exposure to other specified factors, initial encounter; Y93.89 Activity, other specified; Y92.89 Other specified places as the place of occurrence of the external cause; Y99.8 Other external cause status

== ENCOUNTER 2022-02-27 14:37 | Emergency (ER) | payer MEDICAID ==
[~2022-02-27] VITALS: Ht 175.3 cm; Wt 78.9 kg
[2022-02-27] MEDS ORDERED: CYCLOBENZAPRINE 10 MG TABLET ONE (15:08)
[2022-02-27] MEDS ORDERED: IBUPROFEN 400 MG TABLET ONE (15:08)
[2022-02-27 15:10] VITALS: BP 116/80
[2022-02-27] MEDS ORDERED: IBUPROFEN 600 MG TABLET ONE (16:29)
[2022-02-27] MEDS: IBUPROFEN 600 MG TABLET PO ONE (16:34)
== END 2022-02-27 17:28 | disposition home or self-care (01) ==
LOC: ER 14:39
DX: M20.62 Acquired deformities of toe(s), unspecified, left foot (principal); I95.9 Hypotension, unspecified; Z87.19 Personal history of other diseases of the digestive system; Z87.738 Personal history of other specified (corrected) congenital malformations of digestive system; Z60.2 Problems related to living alone; Z79.899 Other long term (current) drug therapy
CPT/HCPCS: 73630-TC

== ENCOUNTER 2022-10-27 22:59 | Emergency (ER) | payer MEDICAID ==
[~2022-10-27] VITALS: Ht 170.2 cm; Wt 81.6 kg
--- NOTE | 2022-10-27 23:22 | NUR ---
BIBRA 860 FROM [place] FOR C/O ABD PAIN, N/V X TODAY
[2022-10-28 00:27] LABS: BASOPHILS % (AUTO) 0.7 % (0.0-2.0); HEMATOCRIT 34 % (39-51); HEMOGLOBIN 10.7 g/dL (13.5-17.5); LYMPHOCYTES # (AUTO) 0.9 K/uL (0.8-4.8); LYMPHOCYTES % (AUTO) 15.7 % (20.0-44.0); MEAN CORPUSCULAR HGB CONC 31 g/dl (31.0-36.0); MEAN CORPUSCULAR VOLUME 92 fL (80-96); MONOCYTES # (AUTO) 0.3 K/uL (0.1-1.30); NEUTROPHILS # (AUTO) 4.2 K/uL (1.8-8.9); NEUTROPHILS % (AUTO) 76.6 % (43.0-81.0); PLATELET COUNT (AUTO) 308 K/uL (150-450); RED BLOOD CELL COUNT(AUTO) 3.73 MIL/uL (4.5-6.0); WHITE BLOOD COUNT (AUTO) 5.5 K/uL (4.3-11.0)
[2022-10-28] MEDS ORDERED: ONDANSETRON HCL/PF 4 MG/2 ML VIAL ONE (00:28)
[2022-10-28] MEDS ORDERED: MAG HYDROX/AL HYDROX/SIMETH 30 ML UDC ONE (00:28)
[2022-10-28] MEDS ORDERED: LIDOCAINE VISCOUS 2% UD 15 ML UDC ONE (00:28)
[2022-10-28] MEDS: MAG HYDROX/AL HYDROX/SIMETH 30 ML UDC PO ONE (00:32)
[2022-10-28] MEDS: ONDANSETRON HCL/PF 4 MG/2 ML VIAL IVP ONE (00:32)
[2022-10-28] MEDS: LIDOCAINE VISCOUS 2% UD 15 ML UDC MM ONE (00:32)
[2022-10-28 00:43] LABS: ALBUMIN 3.7 g/dL (3.4-5.0); BILIRUBIN,DIRECT 0.1 mg/dL (0.0-0.2); BILIRUBIN,TOTAL 0.3 mg/dL (0.2-1.0); CREATININE 0.8 mg/dL (0.6-1.3); POTASSIUM 4.2 mmol/L (3.5-5.1); TOTAL PROTEIN, SERUM 7.4 g/dL (6.4-8.2)
[2022-10-28] MEDS ORDERED: FAMO20TA8 PO (01:53)
[2022-10-28] MEDS ORDERED: FAMOTIDINE (20 MG) 20 MG TABLET ONE (01:57)
[2022-10-28] MEDS: FAMOTIDINE (20 MG) 20 MG TABLET PO ONE (01:59)
[2022-10-28 06:20] VITALS: BP 127/78
== END 2022-10-28 06:21 | disposition home or self-care (01) ==
LOC: ER 23:00
DX: R10.13 Epigastric pain (principal); R11.2 Nausea with vomiting, unspecified; I10 Essential (primary) hypertension; Z59.00 Homelessness unspecified; Z79.899 Other long term (current) drug therapy
CPT/HCPCS: 99283; 96374; 85025; 80048; 83690; 80076; 36415; J2405